=== PATIENT | male | born 1980 | race African-American/Black ===

== ENCOUNTER 2022-09-05 08:56 | Emergency (ER) | payer BC ==
[~2022-09-05] VITALS: Ht 175.3 cm; Wt 56.7 kg
[2022-09-05] MEDS ORDERED: CYCLOBENZAPRINE5 MG PO (09:32)
[2022-09-05] MEDS ORDERED: MELOXICAM7.5 MG PO (09:32)
== END 2022-09-05 09:42 | disposition home or self-care (01) ==
LOC: FSED 09:24
DX: S40.012A Contusion of left shoulder, initial encounter (principal); W18.39XA Other fall on same level, initial encounter; Y93.01 Activity, walking, marching and hiking; Y92.89 Other specified places as the place of occurrence of the external cause; I10 Essential (primary) hypertension
CPT/HCPCS: 99282

== ENCOUNTER 2023-11-29 21:45 | Emergency (ER) | payer BC ==
[~2023-11-29] VITALS: Ht 177.8 cm; Wt 58.5 kg
[~2023-11-29 21:45] MED LIST: CYCLOBENZAPRINE5 MG PO; MELOXICAM7.5 MG PO
[2023-11-29 21:49] VITALS: PULSE 100; RESP 18; TEMP 98.4
[2023-11-29] MEDS ORDERED: TAMIFLU75 MG PO (22:21)
[2023-11-29] MEDS ORDERED: VENTOLIN HFA18 GM INH (22:21)
[2023-11-29] MEDS ORDERED: PREDNISONE20 MG PO (22:21)
[2023-11-29 22:30] VITALS: BP 125/84; PULSE 100; RESP 18; TEMP 98.4; O2SAT 96
== END 2023-11-29 22:30 | disposition home or self-care (01) ==
LOC: FSED 21:55
DX: R05.9 Cough, unspecified (principal); J10.1 Influenza due to other identified influenza virus with other respiratory manifestations; Z11.52 Encounter for screening for COVID-19; I10 Essential (primary) hypertension
CPT/HCPCS: 0223U; 87400; 87420; 99282